=== PATIENT | female | born 1985 | race Caucasian/White ===

== ENCOUNTER 2017-02-14 16:11 | Emergency (ER) | payer MEDICAID ==
[2017-02-14 16:12] VITALS: BMI 23.4
[2017-02-14 16:44] VITALS: TEMP 98.1
[2017-02-14] MEDS ORDERED: Bacitracin 500 Units/gm Oint Foilpak UD TOP STA (17:16)
[2017-02-14] MEDS ORDERED: Tetanus/Diphtheria Toxoids 0.5 ml Syringe IM ONE ×2 (17:16→17:24)
[2017-02-14] MEDS ORDERED: Bacitracin 500 Units/gm Oint Foilpak UD ONE (17:22)
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
[2017-02-14 19:12] VITALS: BP 114/70; PULSE 78; RESP 16
[2017-02-14 22:50] VITALS: O2SAT 98
== END 2017-02-14 19:11 | disposition home or self-care (01) ==
LOC: C.ER 16:11
DX: S51.811A Laceration without foreign body of right forearm, initial encounter (principal); S30.0XXA Contusion of lower back and pelvis, initial encounter; S80.12XA Contusion of left lower leg, initial encounter; S80.11XA Contusion of right lower leg, initial encounter; S05.11XA Contusion of eyeball and orbital tissues, right eye, initial encounter; Y04.0XXA Assault by unarmed brawl or fight, initial encounter; Z76.0 Encounter for issue of repeat prescription

== ENCOUNTER 2017-08-10 18:33 | Emergency (ER) | payer MEDICAID ==
[2017-08-10 18:58] VITALS: BMI 27.1
[2017-08-10 19:10] VITALS: O2SAT 100
[2017-08-10 19:49] LABS: HCG,QUALITATIVE URINE NEGATIVE (NEGATIVE)
[2017-08-10 19:57] LABS: SQUAMOUS EPITHIAL 18 /hpf (0-5); URINE BILIRUBIN NEGATIVE (NEGATIVE); URINE BLOOD 3+ (NEGATIVE); URINE CLARITY Hazy (Clear); URINE COLOR Red (YELLOW); URINE GLUCOSE (UA) NORMAL (Normal); URINE LEUKOCYTE ESTERASE TRACE Leu/uL (Negative); URINE PROTEIN 3+ mg/dL (NEGATIVE); URINE UROBILINOGEN NORMAL mg/dL (0.2-1.0)
[2017-08-10] MEDS ORDERED: Sodium Chloride 0.9% 1,000 ML IV ONE (20:21)
--- NOTE | 2017-08-10 20:28 | C.PDOC ---
History Of Present Illness Patient is a 32 y/o female who presents to the ED with complaints of right lower quadrant pain and heavy vaginal bleeding that began today. Patient denies any , fever, chills, nausea, vomiting, or diarrhea. Patient notes Hx of in 2005 and two first trimester miscarriages. Admits to smoking two packs per day for the last 2 years. No other physical complaints at this time. Time Seen by Provider: 08/10/17 19:07 Chief Complaint (Nursing): Female Genitourinary History Per: Patient History/Exam Limitations: no limitations Onset/Duration Of Symptoms: Hrs (today) Current Symptoms Are (Timing): Still Present Location Of Pain/Discomfort: RLQ Associated Symptoms: Other (heavy vaginal bleeding) Abnormal Vaginal Bleeding: Yes Past Medical History Reviewed: Historical Data, Nursing Documentation, Vital Signs Vital Signs: Last Vital Signs Temp 98.4 F 08/10/17 22:24 Pulse 77 08/10/17 22:24 Resp 18 08/10/17 22:24 BP 112/69 08/10/17 22:24 Pulse Ox 100 08/10/17 23:08 - Medical History PMH: Depression, Migraine, Post Traumatic Stress Disorder Surgical History: - [facility] Procedures INJECT/INFUSE NEC (02/10/14) Family History: States: Unknown Family Hx - Social History Hx Tobacco Use: Yes (some days) Hx Alcohol Use: No Hx Substance Use: No - Immunization History Hx Tetanus Toxoid Vaccination: No Hx Influenza Vaccination: Yes (2016) Hx Pneumococcal Vaccination: No Review Of Systems Constitutional: Negative for: Fever, Chills Eyes: Negative for: Pain, Vision Change, Conjunctivae Inflammation ENT: Negative for: Ear Pain, Ear Discharge, Nose Pain, Nose Discharge Cardiovascular: Negative for: Chest Pain, Palpitations, Orthopnea, Paroxysmal Noc. Dyspnea Respiratory: Negative for: Cough, Shortness of Breath, Hemoptysis Gastrointestinal: Positive for: Abdominal Pain (right lower quadrant). Negative for: Nausea, Vomiting, Constipation, Hematochezia Genitourinary: Positive for: Vaginal Bleeding (heavy). Negative for: Dysuria, Frequency, Incontinence Musculoskeletal: Negative for: Neck Pain, Shoulder Pain, Arm Pain Skin: Negative for: Rash Physical Exam - Physical Exam Appears: Well, Non-toxic, No Acute Distress Skin: Normal Color, Warm, Dry Head: Atraumatic, Normacephalic Eye(s): bilateral: Normal Inspection, PERRL, EOMI Ear(s): Bilateral: Normal Nose: Normal Oral Mucosa: Moist Tongue: Normal Appearing Lips: Normal Appearing Teeth: Normal Dentition Gingiva: Normal Appearing Neck: Normal Lymphatic: Normal Exam Chest: Symmetrical Cardiovascular: Rhythm Regular, No Murmur Respiratory: Normal Breath Sounds, No Rales, No Rhonchi, No Wheezing Gastrointestinal/Abdominal: Soft, Tenderness (right lower quadrant and suprapubic area), No Guarding, No Rebound Rectal: Normal Exam Back: Normal Inspection, No CVA Tenderness Extremity: Normal ROM (x4), No Tenderness Extremity: Bilateral: Atraumatic, Normal Color And Temperature, Normal ROM Neurological/Psych: Oriented x3, Normal Speech, Normal Cognition Gait: Steady ED Course And Treatment - Laboratory Results Result Diagrams: 08/10/17 19:30 08/10/17 19:30 O2 Sat by Pulse Oximetry: 100 - CT Scan/US CT abdomen/pelvis Other Rad Studies (CT/US): Interpreted By Me, Read By Radiologist CT/US Interpretation: EXAM: CT Abdomen and Pelvis With Intravenous Contrast. CLINICAL HISTORY: 32 years old, female; Pain; Other: Rlq; Patient HX: Rlq pain & vomitting; Additional info: Abd pain. TECHNIQUE: Axial computed tomography images of the abdomen and pelvis with intravenous contrast. All CT. scans at this facility use one or more dose reduction techniques, viz.: automated exposure control;. ma/kV adjustment per patient size (including targeted exams where dose is matched to indication; i.e. head); or iterative reconstruction technique. CONTRAST: 100 mL of OMNIPAQUE 320 administered intravenously. COMPARISON: CT - ABD PELVIS W/O PO OR IV CONT 2014-04-11 14:09. Report not provided. FINDINGS: Lung bases: Unremarkable. No mass. No consolidation. ABDOMEN: Liver: Hepatic steatosis. Gallbladder and bile ducts: Unremarkable. No calcified stones. No ductal dilation. Pancreas: Unremarkable. No mass. No ductal dilation. Spleen: Unremarkable. No splenomegaly. Adrenals: Unremarkable. No mass. Kidneys and ureters: No hydronephrosis or differential renal nephrogram. Stomach and bowel: Small fat-containing non-bowel containing umbilical hernia. Moderate. constipation No obstruction. No mucosal thickening. PELVIS: Appendix: Normal appendix. Bladder: Incomplete urinary bladder distention with prominent wall. Pericystic induration. Cystitis not. excluded. Correlate with urinalysis. Reproductive: Uterus is mildly prominent likely a reflection of parity or myomata. Indistinct. ovaries/adnexa.If gynecologic source of the patient's symptoms is suspected additional imaging. recommended. ABDOMEN and PELVIS: Intraperitoneal space: Small amount of free pelvic fluid likely gynecologic. No free air. Bones/joints: No acute fracture. No dislocation. Soft tissues: See above. Vasculature: Unremarkable. No abdominal aortic aneurysm. Lymph nodes: Unremarkable. No enlarged lymph nodes. IMPRESSION: The lumen of the appendix is distended with air/feces but there are no para-appendicial inflammatory. changes, and in the absense of clinical/ laboratory findings,this is felt to be normal. Stable findings. Prominent uterus and adnexa.If gynecologic source of the patient's symptoms is suspected additional. imaging recommended. Cystitis is possible. Progress Note: CT abdomen/pelvis, blood work, CBC ordered. Toradol 15 and 1L IV fluids administered. Disposition Counseled Patient/Family Regarding: Diagnosis - Disposition Referrals: [facility] [place] [Outside] [facility] [Outside] [facility] [Outside] Disposition: HOME/ ROUTINE Disposition Time: 23:03 Condition: GOOD Additional Instructions: return for fever/ chills/ nausea vomit or worsening pain Prescriptions: Nitrofurantoin Macrocrystals [Macrobid] 100 mg PO BID 3 Days #6 cap Instructions: Urinary Tract Infections in Adults, Low Back Pain in Adults, Muscle Spasms (DC) Forms: [facility] (Bruneian) - Clinical Impression Clinical Impression: Urinary tract infection, Muscle spasm, Abdominal pain - Scribe Statement The provider has reviewed the documentation as recorded by the Scribe Maggie Villatoro All medical record entries made by the Scribe were at my direction and personally dictated by me. I have reviewed the chart and agree that the record accurately reflects my personal performance of the history, physical exam, medical decision making, and the department course for this patient. I have also personally directed, reviewed, and agree with the discharge instructions and disposition.
[2017-08-10 20:30] LABS: BASO % 0.5 % (0.0-2.0); EOS # 0.2 K/uL (0.0-0.7); MEAN PLATELET VOLUME 8.2 fL (7.2-11.7); MONO # 0.6 K/uL (0.0-0.8); NEUT # 6.9 K/uL (1.8-7.0); WHITE BLOOD COUNT 9.7 K/uL (4.8-10.8)
[2017-08-10 20:38] LABS: EOS % 1.8 % (0.0-4.0); HEMOGLOBIN 13.7 g/dL (11.0-16.0); LYMPH % 20.9 % (20.0-40.0); MEAN CELL VOLUME 92.8 fL (81.0-99.0); MEAN CORPUSCULAR HEMOGLOBIN 30.7 pg (27.0-31.0); MEAN CORPUSCULAR HGB CONC 33.1 g/dL (33.0-37.0); MONO % 6.1 % (0.0-10.0); NEUT % 70.7 % (50.0-75.0); RBC 4.46 Mil/uL (3.80-5.20)
[2017-08-10 20:44] LABS: ALB/GLOB RATIO 1.5 (1.0-2.1); ALBUMIN 4.5 g/dL (3.5-5.0); ALT/SGPT 22 U/L (9-52); AST/SGOT 28 U/L (14-36); BLOOD UREA NITROGEN 12 mg/dL (7-17); CALCIUM 9.4 mg/dl (8.6-10.4); GFR AFRICAN-AMERICAN > 60; GFR NON-AFRICAN AMERICAN > 60
[2017-08-10] MEDS ORDERED: Iohexol 350mg/ml 100 ML ONE (21:00)
[2017-08-10 22:24] VITALS: BP 112/69; PULSE 77; RESP 18; TEMP 98.4
--- NOTE | 2017-08-11 11:31 | CT ---
PROCEDURE: CT Abdomen and Pelvis with contrast HISTORY: abd pain COMPARISON: 04/11/2014 TECHNIQUE: Contrast dose: 100 mL Omnipaque 350 Radiation dose: Total exam DLP = 307.36 mGy-cm. This CT exam was performed using one or more of the following dose reduction techniques: Automated exposure control, adjustment of the mA and/or kV according to patient size, and/or use of iterative reconstruction technique. FINDINGS: LOWER THORAX: Unremarkable. LIVER: Normal size, contour and attenuation. Incidental 5 mm nonspecific low attenuation lesion in the posterior right hepatic lobe common not appreciated on prior noncontrast CT examination. No biliary dilatation. Smooth contour. GALLBLADDER AND BILE DUCTS: Unremarkable. PANCREAS: Unremarkable. No gross lesion or ductal dilatation. SPLEEN: Unremarkable. ADRENALS: Unremarkable. No mass. KIDNEYS AND URETERS: Unremarkable. No hydronephrosis. No solid mass. VASCULATURE: Unremarkable. No aortic aneurysm. BOWEL: Unremarkable. No obstruction. No gross mural thickening. APPENDIX: Normal appendix. PERITONEUM: Unremarkable. No free fluid. No free air. LYMPH NODES: Unremarkable. No enlarged lymph nodes. BLADDER: Unremarkable. REPRODUCTIVE: Normal uterus and adnexae. BONES: No acute fracture. OTHER FINDINGS: None. IMPRESSION: No evidence of acute appendicitis. Unremarkable examination. Preliminary interpretation of this examination was reported by [employer] at 11:06 p.m. on 08/10/2017. There is concurrence of this report with the preliminary interpretation.
== END 2017-08-10 23:29 | disposition home or self-care (01) ==
LOC: C.ER 18:33
DX: N39.0 Urinary tract infection, site not specified (principal); M62.838 Other muscle spasm; R10.31 Right lower quadrant pain; F17.200 Nicotine dependence, unspecified, uncomplicated
CPT/HCPCS: 74177; 80053; 81001; 83605; 84703; 85025; 96361; 96374; 99285; J1885; J7030; Q9967

== ENCOUNTER 2018-01-03 12:44 | Emergency (ER) | payer MEDICAID ==
[2018-01-03 12:44] VITALS: BMI 27.1
[2018-01-03] MEDS ORDERED: Lidocaine 5% Patch TD STA (13:42)
[2018-01-03] MEDS ORDERED: Lidocaine 5% Patch TD ONE (14:00)
--- NOTE | 2018-01-03 15:27 | RAD ---
Date of service: 01/03/2018 PROCEDURE: Radiographs of the Lumbar Spine. HISTORY: right back pain COMPARISON: No prior. FINDINGS: BONES: Normal alignment. No listhesis. No fracture. DISC SPACES: Unremarkable. OTHER FINDINGS: None. IMPRESSION: Unremarkable radiographs of the lumbar spine.
[2018-01-03 15:42] VITALS: BP 111/73; PULSE 75; RESP 18; TEMP 98.2; O2SAT 100
--- NOTE | 2018-01-03 16:04 | C.PDOC ---
History Of Present Illness 32 y/o female presents to the ER complaining of lower back pain which has been present for the past 2 days. Patient states that the pain is very bad, she has limited ROM.Patient reports she does not do any heavy lifting or heavy duty work. Denies radiation of pain, numbness, tingling, urinary symptoms, fever, and chills. Time Seen by Provider: 01/03/18 13:31 Chief Complaint (Nursing): Back Pain History Per: Patient History/Exam Limitations: no limitations Onset/Duration Of Symptoms: Days Current Symptoms Are (Timing): Still Present Severity: Moderate Past Medical History Reviewed: Historical Data, Nursing Documentation, Vital Signs Vital Signs: Last Vital Signs Temp 98.2 F 01/03/18 15:40 Pulse 75 01/03/18 15:40 Resp 18 01/03/18 15:40 BP 111/73 01/03/18 15:40 Pulse Ox 100 01/03/18 15:40 - Medical History PMH: Depression, Migraine, Post Traumatic Stress Disorder Surgical History: - [facility] Procedures INJECT/INFUSE NEC (02/10/14) Family History: States: No Known Family Hx - Social History Hx Tobacco Use: Yes (some days) Hx Alcohol Use: No Hx Substance Use: No - Immunization History Hx Tetanus Toxoid Vaccination: No Hx Influenza Vaccination: Yes (2016) Hx Pneumococcal Vaccination: No Review Of Systems Except As Marked, All Systems Reviewed And Found Negative. Constitutional: Negative for: Fever, Chills Genitourinary: Negative for: Dysuria, Frequency, Incontinence, Hematuria Musculoskeletal: Positive for: Back Pain Neurological: Negative for: Weakness, Numbness Physical Exam - Physical Exam Appears: Non-toxic, No Acute Distress Skin: Normal Color, Warm, Dry Head: Atraumatic, Normacephalic Eye(s): bilateral: Normal Inspection Nose: Normal Oral Mucosa: Moist Neck: Supple Chest: Symmetrical Cardiovascular: Rhythm Regular Respiratory: Normal Breath Sounds, No Rales, No Rhonchi, No Wheezing Back: Vertebral Tenderness (right-sided vertebral tenderness), Muscle Spasm (muscle spasm to right side), Paraspinal Tenderness (right sided paraspinal tenderness) Neurological/Psych: Oriented x3, Normal Speech, Normal Motor, Normal Sensation ED Course And Treatment O2 Sat by Pulse Oximetry: 100 (RA) Pulse Ox Interpretation: Normal - Other Rad V-Coy-Jnemsz Spine X-Ray: Viewed By Me, Read By Radiologist Interpretation: Date of service: 01/03/2018. PROCEDURE: Radiographs of the Lumbar Spine. HISTORY: right back pain. COMPARISON: No prior. FINDINGS: BONES: Normal alignment. No listhesis. No fracture. DISC SPACES: Unremarkable. OTHER FINDINGS: None. IMPRESSION: Unremarkable radiographs of the lumbar spine. Progress Note: L-[id number]-[id number] Spine ordered and reviewed. Patient treated with Toradol IM, Valium PO,and Lidoderm Patch. On re-evaluation, patient feels better, ambulatory, no neuro deficit. Patient has been discharged and instructed to follow up with PMD in 1-2 days. Disposition - Disposition Referrals: Yury Richter MD [Medical Doctor] - Disposition: HOME/ ROUTINE Disposition Time: 16:01 Condition: STABLE Additional Instructions: Follow up with your PMD within 1-2 days. Return to ED if feel worse. Prescriptions: Lidocaine 5% [Lidoderm] 1 patch TP DAILY #30 patch Naproxen [Naprosyn] 1 tab PO BID PRN #25 tab PRN Reason: Pain diaZEpam [Valium] 2 mg PO TID #15 tab Instructions: Low Back Pain in Adults Forms: [facility] (Latvian), Work Excuse - Clinical Impression Clinical Impression: Low back pain - PA / FOREST RANGER / Resident Statement MD/DO has reviewed & agrees with the documentation as recorded. - Scribe Statement The provider has reviewed the documentation as recorded by the Sandrineibe Diaz Pinon Provider Attestation All medical record entries made by the Scribe were at my direction and personally dictated by me. I have reviewed the chart and agree that the record accurately reflects my personal performance of the history, physical exam, medical decision making, and the department course for this patient. I have also personally directed, reviewed, and agree with the discharge instructions and disposition.
== END 2018-01-03 16:09 | disposition home or self-care (01) ==
LOC: C.ER 12:44
DX: M54.5 Low back pain (principal); Z72.0 Tobacco use
CPT/HCPCS: 72100; 96372; 99283; J1885

== ENCOUNTER 2018-05-27 12:00 | Emergency (ER) | payer MEDICAID ==
[2018-05-27 12:00] VITALS: BMI 27.1
[2018-05-27 12:29] VITALS: BP 120/79; PULSE 86; RESP 18; TEMP 98.9; O2SAT 100
== END 2018-05-27 14:11 | disposition left against medical advice (07) ==
LOC: C.ER 12:00
DX: Z02.89 Encounter for other administrative examinations (principal); R10.9 Unspecified abdominal pain